=== PATIENT | male | born 1975 | race Caucasian/White ===

== ENCOUNTER 2023-06-23 07:35 | Day surgery (SDC) | payer OTHER, SELFPAY ==
[2023-05-13 14:03] VITALS: BMI 23.0
--- NOTE | 2023-06-22 10:31 | P.PNAN_ITS ---
Anes - Initial Pre Proc Eval Procedure: Operation Date: 06/23/23 10:00 Proposed Procedures p Diagnostic Colonoscopy - Levar Moreno MD Date/Time: 06/22/23 10:31 Surgeon: Levar Moreno MD Pre Op Diagnosis: Z83.71 Family history of colon polyps Patient Data Age: 47 Gender: M Height: 1.7 m Weight: 68.039 kg Allergies Allergy/AdvReac Type Severity Reaction Status Date / Time Penicillins Allergy Unknown Rash Verified 06/23/23 08:39 Home Medications Medication Instructions Recorded Confirmed Type No Home Medications 06/07/23 06/23/23 History Patient hx anesthesia problems: none Family hx anesthesia problems: none Results Review: All pre-operative results and documents have been reviewed as part of the pre- operative evaluation. [facility] Past Medical History Medical History Herpes dermatitis Family History Family History Father Carcinoma of colon Social History Social History Smoking status: Never smoker Alcohol intake: current Alcohol use details: 1-2 per week Substance use type: does not use Living arrangements: with family Spiritual care concerns: No Anes - Eval Final PreProcedure Day of Procedure 06/22/23 10:31 Patient weight: normal Heart: regular rate and rhythm Lungs: clear to auscultation and normal air movement Airway: Mallampati scale class II Neurological: alert and oriented Last oral intake: >/= 8 hours ASA classification: I Emergent: no Anesthetic plan: proceed Anesthesia type and monitoring: general GIVS and standard monitoring Results Review: All pre-operative results and documents have been reviewed as part of the pre- operative evaluation. Informed Consent: The patient's anesthetic plan and its attendant risks and benefits were discussed with the patient/family/POA. Questions were solicited and answers provided to the satisfaction of the patient/family/POA.
--- NOTE | 2023-06-22 13:48 | PM.HPGS ---
History of Present Illness History of Present Illness Consent: Risks, benefits, and alternatives have been discussed and questions answered. Patient agrees to proceed with procedure. Chief complaint: Z83.71 Family history of colon polyps Narrative: Javad Alicia is a 47 year old male Referred for colon cancer screening. His father had colon cancer. His last colonoscopy was 5 years ago Review of Systems Review of Systems: All systems reviewed & are unremarkable except as noted in HPI and below PMFSH Past Medical History Medical History Herpes dermatitis Family History Family History Father Carcinoma of colon Social History Social History Smoking status: Never smoker Alcohol intake: current Alcohol use details: 1-2 per week Substance use type: does not use Living arrangements: with family Spiritual care concerns: No Meds Home Medications and Allergies Home Medications Medication Instructions Recorded Confirmed Type No Home Medications 06/07/23 06/23/23 History Allergies Allergy/AdvReac Type Severity Reaction Status Date / Time Penicillins Allergy Unknown Rash Verified 06/23/23 08:39 Exam Resp: Auscultation: clear to auscultation bilaterally Cardio: Rate: regular rate Rhythm: regular rhythm GI: GI Palp: Yes Soft to palpation and No Tenderness to palpation present (GI) Assessment and Plan Assessment and plan (1) Family history of colon cancer: Code(s): Z80.0 - Family history of malignant neoplasm of digestive organs Status: Acute Assessment and Plan: Colonoscopy with possible biopsy or polypectomy or cautery or injection of substances.
[2023-06-23 08:47] VITALS: BP 106/71; PULSE 63; RESP 16; TEMP 36.7; O2SAT 100; BMI 22.8
[2023-06-23] MEDS: LACTATED RINGERS 1,000 ML 150 ML IV CONT (08:57)
[2023-06-23 10:08] VITALS: BP 114/75; PULSE 58; RESP 16; O2SAT 99
[2023-06-23 10:18] VITALS: BP 109/67; PULSE 62; RESP 18; O2SAT 100
[2023-06-23 10:28] VITALS: BP 110/72; PULSE 59; RESP 20; O2SAT 100
--- NOTE | 2023-06-24 09:57 | WPDANESPN ---
Anes - Prog Note Post-Op Date/Time: 06/24/23 09:57 Cardiovascular status: normal Respiratory status: normal Airway patency: baseline Mental status: baseline Post-Op hydration status: normal Vital Signs: Last Vital Signs Temp 36.7 C 06/23/23 08:47 Pulse 59 L 06/23/23 10:28 Resp 20 06/23/23 10:28 BP 110/72 06/23/23 10:28 Pulse Ox 100 06/23/23 10:28 O2 Del Method Room Air 06/23/23 10:28 Pain Score (VAS): 0 Post-procedural complaints: none Patient Feedback: Patient satisfied with anesthetic care. Other Findings: Patient vital signs back to baseline. Patient denies nausea and vomiting. Patient's pain under control. Patient OK for discharge.
== END 2023-06-23 10:42 | disposition home or self-care (01) ==
PROVIDERS: PCP Family Medicine; Visit Provider Internal Medicine Gastroenterology
PROC: 0DJD8ZZ Inspection of Lower Intestinal Tract, Via Natural or Artificial Opening Endoscopic (ICD-10-PCS; CPT 45378; principal; 2023-06-23 10:00)
DX: Z80.0 Family history of malignant neoplasm of digestive organs (principal); Z12.11 Encounter for screening for malignant neoplasm of colon
CPT/HCPCS: 45378

== ENCOUNTER 2025-03-29 08:38 | Outpatient (CLI) | payer OTHER, SELFPAY ==
--- OUTSIDE RECORDS SUMMARY | 2025-03-29 08:45 | XMS_ITS | Clinical Summary ---
Author Organization [facility] Address [address] [place] [id number] Care Team Providers Care Sales Service Coordinator Name Role Phone Ernesto Dias MD Primary Care Provider [phone] Allergies Active Allergy Reactions Criticality Noted Date Comments Penicillins Rash Medium 12/02/2021 Medications No known medications Active Problems No known active problems Encounters Date Type Department Care Team Description 01/17/2025 2:12 PM CDT - 01/17/2025 11:59 PM CDT Hospital Encounter [facility] [address] [place] [id number] Discharge Disposition: Discharge to home or self care 01/17/2025 1:30 PM CDT Office Visit [facility] Medicine and [facility]) - [facility] [address] [place] [phone] Nestor Alonzo MD Right foot pain (Primary Dx) from Last 3 Months Social History Tobacco Use Types Packs/Day Years Used Date Smoking Tobacco: Never Smokeless Tobacco: Never Sex and Gender Information Value Date Recorded Sex Assigned at Not on file Legal Sex Male 7:50 PM CDT Gender Identity Not on file Sexual Orientation Not on file Obstetrics History Last Filed Vital Signs Vital Sign Reading Time Taken Comments Blood Pressure 109/76 10/01/2024 8:38 AM CDT Pulse 57 10/01/2024 8:38 AM CDT Temperature 36.3 C (97.4 F) 10/01/2024 8:38 AM CDT Respiratory Rate 18 10/01/2024 8:38 AM CDT Oxygen Saturation 99% 10/01/2024 8:38 AM CDT Inhaled Oxygen Concentration - - Weight 65.8 kg (145 lb) 01/17/2025 2:07 PM CDT Height 170.2 cm (5' 7) 01/17/2025 2:07 PM CDT Body Mass Index 22.71 01/17/2025 2:07 PM CDT Plan of Treatment Health Maintenance Due Date Last Done Comments Colon Cancer Screening-Colonoscopy 1977 Depression Screening 1977 Hepatitis C Screening 1977 DTaP/Tdap/Td Vaccine (1 - Tdap) 1988 Hepatitis B Screening 1995 Regular Well Visit/Exam 18-64 1995 Covid-19 Vaccine (4 - 2023-2 5 season) 2024 09/08/2021, 11/08/2020, 10/18/2020 Influenza Vaccine (#1) 2025 Pneumococcal vaccine <65 Aged Out No longer eligible based on patient's age to complete this topic Procedures Procedure Name Priority Date/Time Associated Diagnosis Comments XR FOOT RIGHT 3 OR MORE VIEWS Schedule Routine, Read Routine (OP Routine) 01/17/2025 2:17 PM CDT Right foot pain from Last 3 Months Results * XR Foot Right 3+ View (01/17/2025 2:17 PM CDT) Anatomical Region Laterality Modality Lower Extremities, Foot Right Computed Radiography 01/17/2025 3:25 PM CDT Impressions 01/17/2025 4:15 PM CDT 1. 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 Dictated by: Elder Krause M.D. The radiology attending physician has personally reviewed this study, and had reviewed and/or edited this written report and agrees with it. Electronically signed by: Le Paulino 01/17/2025 4:15 PM CDT EXAMINATION: XR FOOT RIGHT 3 OR MORE VIEWS HISTORY: Right foot pain FINDINGS: 3 radiographs of the right foot. No prior radiographs for comparison. No acute fracture or dislocation. Mild hallux valgus. Mild 1st metatarsophalangeal joint osteoarthritis. Pes cavus. Small plantar calcaneal spur. Procedure Note Howie Garcia, - 01/17/2025 EXAMINATION: XR FOOT RIGHT 3 OR MORE VIEWS HISTORY: Right foot pain FINDINGS: 3 radiographs of the right foot. No prior radiographs for comparison. No acute fracture or dislocation. Mild hallux valgus. Mild 1st metatarsophalangeal joint osteoarthritis. Pes cavus. Small plantar calcaneal spur. IMPRESSION: 1. 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 Dictated by: Elder Krause M.D. The radiology attending physician has personally reviewed this study, and had reviewed and/or edited this written report and agrees with it. Electronically signed by: Howie Garcia D.O. us Nestor Alonzo MD IMG XR PROCEDURES Final Res ult from Last 3 Months Insurance [facility] CHOICE PLUS [facility] CHOICE PLUS Member Subscriber Plan / Payer (Ef fective 2024-Present) Name:Javad Vasques Relation to Subscriber:Spouse Name:ERNST VASQUES Date of :1978 Address: [address] [place] [id number] Payer ID:[id number] ([employer]) Type:[facility] HMO/PPO Address: [place] [id number] Care Teams Sales Service Coordinator Relationship Specialty Start Date End Date Ernesto Dias MD [facility] [address] [id number] PCP - General Family Medicine 01/17/25
[2025-03-29 12:14] LABS: Alanine Aminotransferase 25 U/L (6-50); Albumin Level 4.0 g/dL (3.5-5.1); Alkaline Phosphatase 58 U/L (38-126); Anion Gap 5 mmol/L (4-12); Aspartate Amino Transferase 57 U/L (17-59); Bilirubin,Total 0.8 mg/dL (0.2-1.3); Blood Urea Nitrogen 17 mg/dL (9-20); Calcium 9.1 mg/dL (8.4-10.2); Carbon Dioxide 30 mmol/L (22-30); Chloride 103 mmol/L (98-107); Cholesterol 169 mg/dL (0-200); Estimated Glomerular Filt Rate > 60; Glucose 96 mg/dL (65-110); HDL Direct 55 mg/dL; Potassium 4.1 mmol/L (3.4-5.0); Sodium 138 mmol/L (137-145); Total Protein 6.7 g/dL (6.3-8.2); Triglycerides 59 mg/dL (<150)
[2025-03-29 12:49] LABS: Prostate Specific Antigen 1.1 ng/mL (< OR = 4.0)
== END 2025-03-29 08:39 | disposition home or self-care (01) ==
LOC: ANHGOSHLAB 08:38
PROVIDERS: PCP Family Medicine; Visit Provider Family Medicine
DX: Z00.00 Encounter for general adult medical examination without abnormal findings (principal); Z12.5 Encounter for screening for malignant neoplasm of prostate
CPT/HCPCS: 36415; 80053; 80061; 84153; G0103